=== PATIENT | female | born 1990 | race Caucasian/White ===

== ENCOUNTER 2016-03-12 05:28 | Day surgery (SDC) | payer BC ==
[~2016-03-12] VITALS: Ht 172.7 cm; Wt 66.3 kg
[~2016-03-12 05:28] MED LIST: HUMALOG100 U/ML SC; IBUPROFEN 200200 MG PO; IRON324 M1 PO; LEVAQUIN 5500 MG/TA1 PO; NORCO 325 MG-7.1 TAB PO; SYNTHROID 0.0.025 MG; SYNTHROID0.05 MG/TA PO; TYLENOL W/COD1 UDTAB PO; VITAMIN C500 MG PO
[2016-03-12] MEDS ORDERED: LANTUS SOLOS100 U/ML SQ (06:18)
[2016-03-12] MEDS ORDERED: HUMALOG PEN100 U/ML SQ (06:18)
[2016-03-12] MEDS ORDERED: PEN-VEE K500 MG PO (06:19)
[2016-03-12] MEDS ORDERED: BACTRIM DS 8001 TAB PO (06:19)
[2016-03-12 06:48] VITALS: BP 133/79; PULSE 125; TEMP 97.7
[2016-03-12 07:42] VITALS: BP 115/71; PULSE 99; TEMP 98.9
[2016-03-12 07:57] VITALS: BP 112/66; PULSE 97
[2016-03-12] MEDS ORDERED: NORCO 325 MG-51 TAB PO (08:06)
[2016-03-12 08:12] VITALS: BP 121/73; PULSE 98
[2016-03-12 08:27] VITALS: BP 112/70; PULSE 96
[2016-03-12 08:57] VITALS: BP 111/77; PULSE 97
== END 2016-03-12 09:24 | disposition home or self-care (01) ==
LOC: SDCO 05:28
DX: L02.416 Cutaneous abscess of left lower limb (principal); E11.9 Type 2 diabetes mellitus without complications
CPT/HCPCS: J0690; J1170; J2704; J3010; J7030